=== PATIENT | male | born 1945 | race Caucasian/White ===

== ENCOUNTER 2019-07-30 14:56 | Emergency (ER) | payer MEDICARE, SELFPAY ==
[2019-07-30 15:14] VITALS: BP 154/72; PULSE 75; RESP 16; TEMP 36.6; O2SAT 97
--- NOTE | 2019-07-30 15:51 | DI.RAD_ITS ---
EXAM: XR SHOULDER RT COMPLETE 2+V INDICATION: fall, pain. COMPARISON: RIGHT SHOULDER COMPLETE from 12/17/2016 TECHNIQUE: 2D digital imaging was performed. FINDINGS: The patient has a right shoulder hemiarthroplasty. There is a comminuted mildly displaced and impacte d fracture involving the proximal metaphysis of the right humerus. No other fracture or dislocation is identified. The soft tissues are unremarkable. IMPRESSION: Proximal right humeral fracture as described above.
--- NOTE | 2019-07-30 16:00 | W.ED.GENAD ---
Discharge Plan Disposition Patient Disposition: HOME Discharge Details Chief Complaint: Orthopedic Clinical Impression: Closed fracture of proximal end of right humerus, Fall due to ice or snow Primary Care Provider: Felicita Delatorre ED Provider: Stewart Fermin Home Meds and New Rx's Prescriptions: New oxycodone 5 mg tablet 5 mg PO BID PRN (Reason: severe pain) Qty: 10 RF: 0 Continued aspirin [Aspir-81] 81 MG tablet,delayed release (DR/EC) 81 mg PO DAILY RF: 0 acetylcysteine 600 MG capsule 600 mg PO DAILY RF: 0 ibuprofen [Advil] 100 MG tablet,chewable 200 mg PO Q4H PRN RF: 0 multivitamin [Daily Value] 1 EACH tablet 1 ea PO DAILY RF: 0 meclizine 25 MG tablet,chewable 25 mg PO QID PRNQty: 30 RF: 3 atovaquone-proguanil [Malarone] 250-100 mg tablet See Rx Instructions PO .COMPLEX Qty: 28 RF: 0 Discharge Instructions Instructions: Oxycodone, Rapid Release (By mouth), Fall Prevention for Older Adults (ED), Proximal Humerus Fracture (ED) Additional Instructions: Please take acetaminophen (tylenol) - 650mg every 6 hours by mouth as needed for pain. Please take ibuprofen over the counter. Take 600mg by mouth every 6 hours as needed for pain. Please use sling. Follow-up with orthopedics. Call on Wednesday to schedule follow-up appointment. Return to the ER for any worsening or new concerning symptoms. Referrals: Steve Adame MD [ [facility] STAFF PHYSICIAN] - Felicita Delatorre NP [Primary Care Provider] - Discharge Data Discharge Date/Time-TO BE ENTERED AT DEPARTURE: 07/30/19 16:30 Medical Decision Making 74-year-old male here after slip and fall on ice with injury to his right shoulder. Patient is neurovascular intact distally. Right shoulder x-ray reviewed and interpreted by me: Comminuted fracture of the proximal humerus with questionable extension into humeral head. There is a humeral head In place. I called and spoke with Dr. Adame and discussed ED presentation and course, he reviewed x-rays, he recommends outpatient follow-up in clinic. HPI General Mode of arrival: ambulatory. Date/Time Provider Initiated Documentation: 07/30/19 15:16. Limitations to Documentation: no limitations. Information obtained by: patient. HPI Narrative: 74-year-old male with history of arthritis, prior humeral head replacement on the right for arthritis, here with chief complaint of right shoulder pain. Patient notes he slipped and fell on the ice landing on his right shoulder just prior to arrival. Pain is severe and worse with any movement of his shoulder. He sustained no other injury during the fall. No neck pain. No head injury. No headache. He has no hip pain. No associated numbness or tingling in his arm. Related Data Home Medications Medication Instructions Recorded Confirmed acetylcysteine 600 mg PO DAILY 10/28/12 08/08/19 aspirin [Aspir-81] 81 mg PO DAILY tab-cap 10/28/12 08/08/19 ibuprofen [Advil] 200 mg PO Q4H PRN tab 11/02/13 08/08/19 multivitamin [Daily Value] 1 ea PO DAILY 12/11/15 08/08/19 meclizine 25 mg PO QID PRN #30 tab-cap 03/30/17 08/08/19 atovaquone 250 mg-proguanil 100 mg See Rx Instructions PO .COMPLEX 07/08/18 08/08/19 tablet #28 tab oxycodone 5 mg PO BID PRN #10 tab 07/30/19 08/08/19 Previous Rx's Medication Instructions Recorded atovaquone 250 mg-proguanil 100 mg See Rx Instructions PO .COMPLEX 07/08/18 tablet #28 tab oxycodone 5 mg PO BID PRN #10 tab 07/30/19 Allergies Allergy/AdvReac Type Severity Reaction Status Date / Time Penicillins Allergy Intermediate rash Verified 08/08/19 10:52 vancomycin Allergy Unknown Rash Verified 08/08/19 10:52 General Stated Complaint: Orthopedic SYBIL: 4 Review of Systems Constitutional Constitutional: Denies headache(s) ENT Ears, Nose, Mouth, and Throat: Denies headache(s) Cardiovascular Cardiovascular: Denies dyspnea Respiratory Respiratory: Denies dyspnea Gastrointestinal Gastrointestinal: Denies abdominal pain Musculoskeletal Musculoskeletal: Reports as per HPI Neurologic Neurologic: Reports as per HPI and Denies headache(s) [facility] Surgical History CAP PROSTHESIS RIGHT SHOULDER DR. CARNEY Colectomy (~08/2011) [facility] [place] Colonoscopy - IV Sedation (09/14/14) Family History Mother , breast CA at age 40. Lung cancer Father No problems noted. Sister No problems noted. Sister No problems noted. Sister No problems noted. Social History Smoking/Tobacco Use Status: Never Alcohol Intake: never Drug use: Never Current gender identity: male Do you feel safe at home: Yes Do you feel safe in your relationship?: Yes Exam Const General: cooperative and no acute distress HENMT Head: normocephalic and atraumatic Neck Neck: trachea midline and supple Resp Auscultation: clear to auscultation bilaterally, no rales, no rhonchi and no wheezes Cardio Jugular venous pressure: no JVD Rate: regular rate and not tachycardic Rhythm: regular rhythm GI Palpation: soft, not firm, no guarding, no masses, not rigid and nontender Back/Spine/Pelvis Cervical Spine: cervical ROM normal, No cervical spinal tenderness and No step off deformity Thoracic/Lumbar Spine: No thoracic spinal tenderness and No lumbar spinal tenderness Pelvis: no pain with lateral compression Skin General skin exam: no rashes or lesions noted Neuro General: alert, awake, oriented x3 and tone normal Extrem General: no edema and other (Distal motor and sensation intact, 2+ radial pulse right) Right upper extremity: shoulder/upper arm Details: tenderness Location: of the proximal humerus, swelling Location: of the proximal humerus and abnormal ROM Details: held in an abnormal fashion Details: in ADduction and pain with passive ROM Details: with ABduction Course Vital Signs Vital signs: Vital Signs Temperature 36.6 C 07/30/19 15:14 Pulse 75 07/30/19 15:14 Respiratory Rate 16 07/30/19 15:14 Blood Pressure 154/72 H 07/30/19 15:14 Pulse Oximetry 97 07/30/19 15:14 Temperature 36.6 C 07/30/19 15:14 Temperature Source Temporal Artery Scan 07/30/19 15:14 Pulse 75 07/30/19 15:14 Respiratory Rate 16 07/30/19 15:14 Respiratory Effort Non-Labored 07/30/19 15:16 Blood Pressure 154/72 H 07/30/19 15:14 Blood Pressure Position Sitting 07/30/19 15:14 Pulse Oximetry 97 07/30/19 15:14 Oxygen Delivery Method Room Air 07/30/19 15:14 Oxygen Flow Rate 0 07/30/19 15:14 Pain Level 6 07/30/19 15:24
--- NOTE | 2019-07-30 16:17 | DI.VRAD_ITS ---
PROCEDURE INFORMATION: Exam: XR Right Shoulder Exam date and time: 07/30/2019 3:52 PM Age: 74 years old Clinical indication: Injury or trauma; Fall; Initial encounter; Blunt trauma (contusions or hematomas; Arm, upper; Right; Prior surgery TECHNIQUE: Imaging protocol: XR Right shoulder. Views: 2 or more views. COMPARISON: CR RIGHT SHOULDER COMPLETE 12/17/2016 11:15 AM FINDINGS: Bones/joints: Acute, minimally impacted and mildly displaced fracture of the right humerus proximal metaphysis. Right shoulder hemiarthroplasty, unchanged in position and alignment compared to the prior study. No dislocation. Degenerative changes within the acromioclavicular joint. Soft tissues: Normal. IMPRESSION: Acute fracture of the right proximal humerus. Dictated and Authenticated by: Nilson Meadows MD. Ordering:MONAE William MD
[2019-07-30] MEDS: Ibuprofen 600 MG TAB PO (16:18)
[2019-07-30] MEDS: Acetaminophen 325 MG TAB 650 MG PO (16:18)
[2019-07-30] MEDS: oxyCODONE 5 MG TAB 10 MG PO (16:26)
[2019-07-30 16:41] VITALS: BP 148/78; PULSE 70; RESP 18; O2SAT 97
== END 2019-07-30 16:30 | disposition home or self-care (01) ==
PROVIDERS: Emergency Provider Student in an Organized Health Care Education/Training Program; PCP Nurse Practitioner
DX: S42.201A Unspecified fracture of upper end of right humerus, initial encounter for closed fracture (principal); W00.0XXA Fall on same level due to ice and snow, initial encounter
CPT/HCPCS: 99284; 73030; 99283; L3650

== ENCOUNTER 2019-07-31 10:15 | Outpatient (CLI) | payer MEDICARE, SELFPAY ==
--- NOTE | 2019-07-31 13:40 | DI.CT_ITS ---
EXAM: CT UPPER EXTREMITY RT WO CLINICAL HISTORY: RIGHT PROXIMAL HUMERUS FRACTURE, S42.209A, PRESURGICAL PLANNING TECHNIQUE: NONCONTRAST COMPARISON: XR SHOULDER RT COMPLETE 2+V from 07/30/2019 FINDINGS: There is a comminuted fracture of the proximal metaphysis of the right humerus. Fracture extends pro ximally to involve a portion of the posterior greater tuberosity. Fracture is impacted. Medial disp lacement of the distal fracture component. The patient has a right shoulder hemiarthroplasty. The f racture does not appear to involve the orthopedic hardware. There are degenerative changes seen at t he acromioclavicular joint. There is artifact in the soft tissues due to the patient's orthopedic hardware. The soft tissues roma ear grossly unremarkable. IMPRESSION: Comminuted, impacted fracture involving the proximal metaphysis and the greater tuberosity of the rig ht humerus as described above.
== END 2019-07-31 10:35 ==
PROVIDERS: PCP Nurse Practitioner; Visit Provider Student in an Organized Health Care Education/Training Program
DX: S42.251A Displaced fracture of greater tuberosity of right humerus, initial encounter for closed fracture (principal); Z96.611 Presence of right artificial shoulder joint
CPT/HCPCS: 73200

== ENCOUNTER 2019-08-08 10:52 | Outpatient (CLI) | payer MEDICARE, SELFPAY ==
--- NOTE | 2019-08-08 11:43 | DI.RAD_ITS ---
EXAM: XR SCAPULA RT INDICATION: right humerus injury. COMPARISON: XR SHOULDER RT COMPLETE 2+V from 07/30/2019 TECHNIQUE: 2D digital imaging was performed. FINDINGS: There has been no change in the alignment of the proximal fracture given differences in projection. No new abnormalities are seen.
== END 2019-08-08 11:12 ==
PROVIDERS: PCP Nurse Practitioner; Referring Provider Nurse Practitioner; Visit Provider Student in an Organized Health Care Education/Training Program
DX: M97.31XA Periprosthetic fracture around internal prosthetic right shoulder joint, initial encounter (principal); W00.0XXA Fall on same level due to ice and snow, initial encounter
CPT/HCPCS: 99204; 99215; 73010

== ENCOUNTER 2019-08-29 13:37 | Outpatient (CLI) | payer MEDICARE, SELFPAY ==
--- NOTE | 2019-08-29 13:36 | DI.RAD_ITS ---
EXAM: XR SHOULDER RT COMPLETE 2+V INDICATION: F/U FRACTURE. COMPARISON: XR SHOULDER RT COMPLETE 2+V from 07/30/2019 XR SHOULDER RT COMPLETE 2+V from 07/30/2019 XR SCAPULA RT from 08/08/2019 TECHNIQUE: 2D digital imaging was performed. FINDINGS: A humeral prosthesis is again noted. There has been no change in the alignment of the comminuted fra cture of the proximal humerus. There is increased healing when compared with the previous exam.
== END 2019-08-29 13:57 ==
PROVIDERS: PCP Nurse Practitioner; Referring Provider Nurse Practitioner; Visit Provider Student in an Organized Health Care Education/Training Program
DX: M97.31XA Periprosthetic fracture around internal prosthetic right shoulder joint, initial encounter (principal); Z96.611 Presence of right artificial shoulder joint; W00.0XXA Fall on same level due to ice and snow, initial encounter
CPT/HCPCS: 99213; 73030

== ENCOUNTER 2019-09-26 11:08 | Outpatient (CLI) | payer MEDICARE, SELFPAY ==
--- NOTE | 2019-09-26 10:45 | DI.RAD_ITS ---
EXAM: XR SHOULDER RT COMPLETE 2+V CLINICAL HISTORY: Follow up TECHNIQUE: The exam was performed according to the usual protocol. COMPARISON: XR SHOULDER RT COMPLETE 2+V from 08/29/2019 FINDINGS: Two views were obtained and show previous described proximal humeral metaphyseal fracture with no shirley ss interval change in alignment in comparison with examination of August 29. Appears to be increased callus formation at the fracture site. Humeral head prosthesis remains well seated.
== END 2019-09-26 11:28 ==
PROVIDERS: PCP Nurse Practitioner; Referring Provider Nurse Practitioner; Visit Provider Student in an Organized Health Care Education/Training Program
DX: S42.251D Displaced fracture of greater tuberosity of right humerus, subsequent encounter for fracture with routine healing (principal); Z96.611 Presence of right artificial shoulder joint; M97.31XD Periprosthetic fracture around internal prosthetic right shoulder joint, subsequent encounter; X58.XXXD Exposure to other specified factors, subsequent encounter
CPT/HCPCS: 99214; 73030

== ENCOUNTER 2019-11-14 10:33 | Outpatient (CLI) | payer MEDICARE, SELFPAY ==
--- NOTE | 2019-11-14 10:12 | DI.RAD_ITS ---
EXAM: XR SHOULDER RT COMPLETE 2+V CLINICAL HISTORY: fracture. TECHNIQUE: 2D digital imaging was performed. COMPARISON: XR SHOULDER RT COMPLETE 2+V from 08/29/2019 XR SHOULDER RT COMPLETE 2+V from 09/26/2019 FINDINGS: BONES: There has been no change in alignment of the proximal right humeral fracture. There has been increased callus formation about the fracture compared to the prior examination. No new fracture is identified. No bony destructive lesion is seen. JOINTS: The right shoulder prosthesis is stable. SOFT TISSUE: Normal. IMPRESSION: Stable healing proximal right humeral fracture. DATA REPOSITORY: RADIATION DOSE DELIVERED:
== END 2019-11-14 10:53 ==
PROVIDERS: PCP Nurse Practitioner; Referring Provider Nurse Practitioner; Visit Provider Student in an Organized Health Care Education/Training Program
DX: S42.251D Displaced fracture of greater tuberosity of right humerus, subsequent encounter for fracture with routine healing (principal); Z96.611 Presence of right artificial shoulder joint; M97.31XD Periprosthetic fracture around internal prosthetic right shoulder joint, subsequent encounter; W00.0XXD Fall on same level due to ice and snow, subsequent encounter
CPT/HCPCS: 99213; 73030

== ENCOUNTER 2020-02-13 08:38 | Outpatient (CLI) | payer MEDICARE, SELFPAY ==
--- NOTE | 2020-02-13 08:15 | DI.RAD_ITS ---
EXAM: XR SHOULDER RT COMPLETE 2+V CLINICAL HISTORY: fu right shoulder fx TECHNIQUE: COMPARISON: CR XR SHOULDER RT COMPLETE 2+V from 11/14/2019 FINDINGS: Two views were obtained. Note is again made of humeral head prosthesis which appears well seated in the glenoid and the humerus. Previously noted proximal humeral fracture again seen which shows incre ased healing with no gross interval change in alignment comparison films of November 13. IMPRESSION:
== END 2020-02-13 08:58 ==
PROVIDERS: PCP Nurse Practitioner; Referring Provider Nurse Practitioner; Visit Provider Student in an Organized Health Care Education/Training Program
DX: S42.251D Displaced fracture of greater tuberosity of right humerus, subsequent encounter for fracture with routine healing (principal); M97.31XA Periprosthetic fracture around internal prosthetic right shoulder joint, initial encounter; Z96.611 Presence of right artificial shoulder joint
CPT/HCPCS: 99213; 73030

== ENCOUNTER → 2024-03-07 09:05 | Outpatient (CLI) | payer OTHER, SELFPAY ==
--- NOTE | 2024-03-07 09:00 | DI.RAD_ITS ---
Exam(s) XR CHEST 2V PA LATERAL EXAM: XR CHEST 2V PA LATERAL CLINICAL HISTORY: MEADE, Fatigue, Decreased exercise tolerance, SOB, R68.89, R53.83, R06.02,. TECHNIQUE: 2D digital imaging was performed. COMPARISON: No exams were available for comparison FINDINGS: 2 views: Heart size is normal. The mediastinum is not widened. Lungs are clear. No infiltrates nor pleural effusions. Right shoulder prosthesis noted. IMPRESSION: No acute pulmonary findings. DATA REPOSITORY: RADIATION DOSE DELIVERED:
== END ==
PROVIDERS: PCP Nurse Practitioner; Visit Provider Nurse Practitioner
DX: R68.89 Other general symptoms and signs (principal); R53.83 Other fatigue; R06.02 Shortness of breath; Z13.220 Encounter for screening for lipoid disorders
CPT/HCPCS: 71046

== ENCOUNTER 2024-03-14 01:47 | Outpatient (CLI) | payer OTHER, SELFPAY ==
--- NOTE | 2024-03-14 06:00 | ETT_ITS ---
APPROVED REPORT Exam: Exercise Treadmill Patient Location: Out-Patient Room/Bed: Stress Nurse: Naz Perez RN Ordering Provider:MILDRED COLES, Contact Number: [phone] BMI: 27.05 Baseline Rhythm: Sinus Rhythm Indications: SOB, decreased exercise tolerance, fatigue, dyspnea, Medical History Medical History: BPV, chronic shoulder pain Cardiac Medications: Acetylcysteine, aspirin Allergies: Pencillin, vancomycin Cardiac Risk Factors: None Previous Cardiac Procedures: None Pretest Chest Pain Characteristics: None Exercise History: Physically active Physical Disabilities: None Lung Sounds: Clear to auscultation Heart Sounds: Regular Stress Test Details Test: Exercise stress testing was performed using a Luís protocol. Rest Stress HR Resting HR Supine: 62 bpm Max Heart Rate (APMHR): 141 bpm Resting HR Standin bpm Target HR (85% APMHR): 120 bpm Max HR Achieved: 132 bpm % of APMHR: 94 Recovery HR: 62 bpm HR response to stress: Accelerated HR response to stress BP Resting BP Supine: 136/82 mmHg Resting BP Standin/78 mmHg Max BP: 172/76 mmHg Recovery BP: 116/76 mmHg BP response to stress: Normal blood pressure response to stress. ECG Resting ECG: Sinus Rhythm Ectopy: None Stress ECG: Sinus Tachycardia ST Change: No significant ST segment changes noted Arrhythmia: Frequent PVC's, couplets, bigeminy Recovery ECG: Sinus Rhythm Recovery ST Change: No significant ST segment changes noted Recovery Arrhythmia: Rare PVC Clinical Reason for Termination: Target HR Achieved, ectopy Stress Symptoms: None Exercise duration: 02 min18 sec Highest Stage Reached: Stage 1: 1.7 mph at 10% grade. Exercise capacity: 4.64 METs Angina Score: None Hernandez Treadmill Score: 1.6 Rate Pressure Product: [id number] Stress ECG Conclusion 1. Resting EKG showed first-degree AV block otherwise normal 2. Patient exercised on the Luís protocol and completed a workload of 4.64 METS 3. Rapid increase in heart rate with activity suggest deconditioning. The patient achieved 94% of pr edicted heart rate for age 4. There was no electrocardiographic findings of myocardial ischemia 5. Occasional PVCs were noted Hernandez Treadmill Score is 1.6 which is Moderate risk. Stress Test Summary STAGE Time (mins) Speed (mph) Grade (%) HR BP SpO2 SYMPTOMS METS Supine 62 136/82 97% Standing 70 132/78 1 3 1.7 10 130 4.5 1 min recovery 101 172/76 98% 3 min recovery 65 138/80 97% 6 min recovery 62 116/76 98%
== END 2024-03-14 02:07 ==
PROVIDERS: PCP Nurse Practitioner; Visit Provider Nurse Practitioner
DX: R06.02 Shortness of breath (principal); R06.09 Other forms of dyspnea
CPT/HCPCS: 93016; 93018; 93017

== ENCOUNTER 2024-03-17 01:48 | Outpatient (CLI) | payer OTHER, SELFPAY ==
[2024-03-17 07:55] LABS: Abs Immature Grans 0.03 10^3/uL (0.0-0.06); Absolute Basophil Count 0.07 10^3/uL (0.0-0.2); Absolute Eosinophil Count 0.17 10^3/uL (0.0-0.7); Absolute Lymphocyte Count 2.07 10^3/uL (1.2-3.4); Absolute Monocyte Count 0.82 10^3/uL (0.1-0.8); Absolute Neutrophil Count 6.14 10^3/uL (1.2-6.7); Basophils % 0.8 %; Eosinophils % 1.8 %; HCT 42.7 % (40.0-50.0); HGB 14.4 g/dL (13.5-17.5); Immature Grans % 0.3 %; Lymphocytes % 22.3 %; MCH 32.5 pg (27.0-33.0); MCHC 33.7 % (32.0-36.0); MCV 96 fL (80-95); Monocytes % 8.8 %; Platelet Count 274 10^3/uL (130-400); RBC 4.43 10^6/uL (4.36-5.78); RDW 12.6 % (11.8-14.1); RDW-SD 44.8 fL
[2024-03-17 08:03] LABS: Bilirubin Negative (Negative); Blood Negative (Negative); Clarity Clear (Clear); Glucose Negative (Negative); Ketones Trace mg/dL (Negative); Leukocyte Esterase Negative (Negative); Nitrite Negative (Negative); Specific Gravity >= 1.030 (1.005-1.025); Urobilinogen 0.2 mg/dL (Up to 0.2); pH 5.5 (5-8)
[2024-03-17 08:55] LABS: ALT 31 U/L (16-63); AST 19 U/L (15-37); Albumin 3.8 g/dL (3.4-5.0); Alkaline Phosphatase 84 U/L (46-116); Anion Gap 8.7 mmol/L (3-11); BUN 18 mg/dL (7-18); Bilirubin, Total 1.14 mg/dL (0.2-1.0); CO2 27.3 mmol/L (21.0-32.0); CREATININE 1.1 mg/dL (0.70-1.30); Calculated LDL 90 mg/dL (<100); Chloride 105 mmol/L (98-107); Cholesterol 162 mg/dL (<200); Estimated GFR 68.29 (mL/min/1.73m2); Glucose 91 mg/dL (74-106); HDL Cholesterol 64 mg/dL (40-60); Potassium 4.2 mmol/L (3.5-5.1); Sodium 141 mmol/L (136-145); TSH (W/Ref FT4) 1.12 uIU/mL (0.36-3.74); Triglyceride 43 mg/dL (<150)
[2024-03-20 09:12] LABS: Lyme Ab w Rflx to Lyme Confirm Negative (Negative)
[2024-03-21 00:56] LABS: Anaplasma phagocytophilum Negative (Negative); B. miyamotoi PCR Negative (Negative); Babesia divergens/MO-1 Negative (Negative); Babesia duncani Negative (Negative); Babesia microti Negative (Negative); Ehrlichia chaffeensis Negative (Negative); Ehrlichia ewingii/canis Negative (Negative); Ehrlichia muris eauclairensis Negative (Negative)
== END 2024-03-17 01:49 | disposition home or self-care (01) ==
LOC: LBO 01:48
PROVIDERS: PCP Nurse Practitioner; Referring Provider Nurse Practitioner; Visit Provider Nurse Practitioner
DX: J45.909 Unspecified asthma, uncomplicated (principal); R68.89 Other general symptoms and signs; R53.83 Other fatigue; R06.02 Shortness of breath; Z13.220 Encounter for screening for lipoid disorders; I10 Essential (primary) hypertension; E78.5 Hyperlipidemia, unspecified
CPT/HCPCS: 36415; 80053; 80061; 87798; 81003; 84443; 85025; 86618

== ENCOUNTER 2024-05-19 11:04 | Day surgery (SDC) | payer OTHER, SELFPAY ==
[2024-05-19 11:15] VITALS: BP 134/81; PULSE 63; RESP 18; TEMP 37; O2SAT 99
[2024-05-19] MEDS: Tropicam./Phenyleph. (1/2.5%) 5 ML BTL OS ×3 (11:22→11:35)
--- NOTE | 2024-05-19 11:29 | ANES.PREOP_ITS ---
General Info Date of Service Date Performed: 05/19/24 Height: 5 ft 11 in Weight: 88.6 kg Body Mass Index (BMI): 27.2 Surgical Procedure: Operation Date: 05/19/24 13:40 Proposed Procedure Side Surgeon p Cataract Extraction with IOL Implant Left Kwasi Elizabeth MD Meds Allergies and Home Medications Allergies Allergy/AdvReac Type Severity Reaction Status Date / Time Penicillins Allergy Intermediate rash Verified 05/19/24 11:22 vancomycin Allergy Unknown Rash Verified 05/19/24 11:22 Home Medication ?Medication ?Instructions ?Recorded acetylcysteine 600 mg capsule 600 mg PO DIRECTED 10/28/12 ibuprofen 100 mg chewable tablet 200 mg PO Q4H PRN 11/02/13 (Advil) multivitamin (Daily Value tablet) 1 ea PO DAILY 12/11/15 triamcinolone acetonide 0.1 % 1 applic topical BID PRN bilateral 09/20/23 topical cream outer ear dermatitis #30 grams aspirin 81 mg tablet,delayed 81 mg PO .3x/week 12/14/23 release (Aspir-) Current Visit Medications: Current Medications Generic Name Dose Route Start Last Admin Trade Name Freq PRN Reason Stop Dose Admin Acetaminophen 1,000 mg 05/19/24 06:40 Acetaminophen 500 Mg Tab PO 06/18/24 06:39 Q4H PRN PRN Balanced Salt Solution 500 ml 05/19/24 06:45 Balanced Salt Soln.-Plus 500 Ml Bag OP 06/18/24 06:44 DIRECTED LEN Miscellaneous Medication 0 ml 05/19/24 06:40 Prednisolone 1%, Moxifloxacin 0.5%, Bromfenac 0.09% 5.6ml Btl OS 06/18/24 06:39 DIRECTED LEN Miscellaneous Medication 0 ml 05/19/24 06:40 Tropicam./Phenyleph. (1/2.5%) 5 Ml Btl OS 06/18/24 06:39 DIRECTED LEN Tetracaine HCl 0 ml 05/19/24 06:40 Tetracaine 0.5% 4 Ml Btl OS 06/18/24 06:39 DIRECTED LEN PFSH Active Problems Active Problems: Problem Status Onset Code Cortical age-related cataract, left eye Acute H25.012 Nuclear age-related cataract, left eye Acute H25.12 Periprosthetic fracture around internal prosthetic shoulder joint Acute 07/30/19 M97.8XXA, Z96.619 Diverticulitis of intestine with abscess Acute K57.80 Medical History Medical History Chronic right shoulder pain (12/11/15) Vertigo Surgical History Surgical History Colonoscopy - IV Sedation (09/14/14) Colectomy (~08/2011) [facility] [place] PROSTHESIS RIGHT SHOULDER DR. CARNEY Tobacco Smoking/Tobacco Use Status: Never Alcohol Alcohol Intake: never Substance Use Substance use: Never Substance use type: does not use Vital Signs and Lab Results Vital Signs Most Recent Vital Signs in EMR: Most Recent Vital Signs Temp Pulse Resp BP Pulse Ox 37 C 63 18 134/81 99 05/19/24 11:15 05/19/24 11:15 05/19/24 11:15 05/19/24 11:15 05/19/24 11:15 Lab Results Blood Type / Crossmatch: No Data to Display Complete Blood Count: No Data to Display Complete Metabolic Panel: No Data to Display Liver Function Panel: No Data to Display Coagulation Panel: 2 No Data to Display Cardiac Panel: No Data to Display Arterial Blood Gas: No Data to Display Venous Blood Gas: No Data to Display Pancreas Panel: No Data to Display Thyroid Panel: No Data to Display Infectious Disease: No Data to Display Blood Cultures: No Data to Display Toxicology Panel: No Data to Display Imaging and Studies Imaging and Studies Study information below may be from another EMR and interpreted by another provider. Please see original notes in EMR for more complete details. Stress Test Summary: 03/14/24 Stress ECG Conclusion 1. Resting EKG showed first-degree AV block otherwise normal 2. Patient exercised on the Luís protocol and completed a workload of 4.64 METS 3. Rapid increase in heart rate with activity suggest deconditioning. The patient achieved 94% of predicted heart rate for age 4. There was no electrocardiographic findings of myocardial ischemia 5. Occasional PVCs were noted Hernandez Treadmill Score is 1.6 which is Moderate risk. Anesthesia Assessment and Plan Anesthesia History Personal History: No History of Anesthesia Complications Family History: No Family History of Anesthesia Complications Exercise Tolerance Exercise Tolerance: Metabolic Equivalents>4 Pertinent Negatives Pertinent Negatives: No Symptoms of GERD, No Major Cardiovascular Symptoms or Complaints, No Major Pulmonary Symptoms or Complaints and No History of CVA/TIA Cardiac & Pulmonary Exam Cardiac Exam: Normal S1/S2 Heart Sounds Pulmonary Exam: Clear Bilateral Breath Sounds Implantable Cardiac Device Does patient have a Pacemaker or an ICD?: No Airway Exam Known Difficult Airway: No Mallampati Class: 1 Mouth Opening: Normal (> 3cm) Thyromental Distance: Greater than 3 cm Neck Range of Motion: Full ROM Neck Circumference: Normal Teeth Condition: Normal Dentition ASA Classification ASA Score: ASA 2 Emergency Case?: No NPO Status NPO Status: NPO Clears >2 hours, Solids >8 hours Anesthesia Plan Resuscitation Status: Full Code Anesthesia Technique: MAC Anesthesia Airway Planned: Natural Airway Monitors Used: Standard Monitors
[2024-05-19 11:34] VITALS: BMI 27.2
[2024-05-19] MEDS: Povidone-Iodine Ophth 30 ML BTL (12:29)
[2024-05-19] MEDS: Tetracaine 0.5% 4 ML BTL OS (12:30)
[2024-05-19] MEDS: Balanced Salt Soln.-PLUS 500 ML BAG OP (12:36)
[2024-05-19] MEDS: Duovisc Viscoelastic System EACH 1 EACH (12:37)
[2024-05-19] MEDS: Lidocaine 1% Pres-Free 5 ML VIAL (12:37)
[2024-05-19] MEDS: Prednisolone 1%, Moxifloxacin 0.5%, Bromfenac 0.09% 5.6ML BTL OS (12:59)
--- NOTE | 2024-05-19 13:07 | W.PM.DSUDISC ---
Date of service: 05/19/24 Time of Service: 13:07 Discharge Plan Disposition Patient Disposition: Home Discharge Details Attending Provider: Kwasi Elizabeth Primary Care Provider: Felicita Delatorre Home Meds and New Rx's Prescriptions: No Action triamcinolone acetonide 0.1 % cream 1 applic topical BID PRN (Reason: bilateral outer ear dermatitis) Qty: 30 3RF acetylcysteine 600 MG capsule 600 mg PO DIRECTED ibuprofen [Advil] 100 MG tablet,chewable 200 mg PO Q4H PRN multivitamin [Daily Value] 1 EACH tablet 1 ea PO DAILY aspirin [Aspir-81] 81 mg tablet,delayed release (DR/EC) 81 mg PO .3x/week Discharge Instructions Stand Alone Forms: [facility] Post-Op Aparna Peterson ([facility]) Discharge Orders Discharge Orders: Discharge Order (Routine); Ordered 05/19/24 Ordered By: Kwasi Elizabeth DS: Diagnosis Discharge Diagnosis (1) Cortical age-related cataract, left eye: Status: Resolved (2) Nuclear age-related cataract, left eye: Status: Resolved
[2024-05-19 13:08] VITALS: BP 143/73; PULSE 66; RESP 18; TEMP 36.7; O2SAT 100
--- NOTE | 2024-05-19 13:08 | ROE_ITS ---
Date of service: 05/19/24 Time of Service: 13:08 Operative Note Operative Note DATE OF PROCEDURE: 05/19/24 PRE-OP DIAGNOSIS: Nuclear/cortical cataract, left POST-OP DIAGNOSIS: same PROCEDURE: Cataract extraction using phacoemulsification with intraocular lens implant, left eye SURGEON: Kwasi Elizabeth ANESTHESIA TYPE: Local By Surgeon and MAC Refer to Anesthesia Record PATHOLOGY: none sent COMPLICATIONS: None Patient was transported to: same day Patient's condition: stable Implants: Miki Clareon [id number] Indications: Progressive decreased vision due to cataract, left eye Procedure Description: CATARACT SURGERY OPERATIVE REPORT PREOPERATIVE DIAGNOSIS: Nuclear/cortical cataract, left eye POSTOPERATIVE DIAGNOSIS: Same OPERATION: Cataract extraction using phacoemulsification with posterior chamber intraocular lens implant, left eye. IOL: IOL Senior Marketing Data Analyst/Model: Miki Clareon [id number] IOL Power: + 19.5 diopters IOL Serial Number: [id number] Optic Diameter: 6.0mm Haptic/Overall Diameter: 13.0mm PHACO INFO: [email or web address] Vision System with OZil and Active Fluidics Cumulative Dispersed Energy (CDE): 4.89 seconds SURGEON: Kwasi Elizabeth MD, ASIYA ANESTHESIA: Monitored Anesthesia Care (MAC), with local sub-tenon's anesthetic infiltration COMPLICATIONS: None SPECIMENS: None INDICATIONS FOR PROCEDURE: The patient is a 79-year-old male with history of diminished visual acuity in his left eye secondary to the development of nuclear/cortical cataract. He is significantly symptomatic. He desires cataract surgery and attempt to improve and maximize his vision. The option of cataract surgery was offered to the pat ient and he wished to proceed. See office notes for detailed information. PROCEDURE: The correct surgical eye was identified and marked as the left eye and the pupil was dilated in the preoperative area using mydriatics and cycloplegics. The dilated pupil size was 5.0 mm. The patient elected to proceed without oral sedation. The patient was brought to the operating room where cardiopulmonary monitoring was instituted and surgical time-out was performed, confirming the correct operative eye and IOL power. Topical anesthesia was administered and ophthalmic povidone-iodine 5% was instilled into the conjunctival fornices. The ermias-ocular area was prepped with Betadine 10% solution and draped in the usual sterile fashion for intraocular surgery, including an aperture drape. A Tegaderm transparent film dressing was cut in half and used to cover the lashes and lid margins. Care was taken to sequester the lashes and lid margins under the Tegaderm dressing. A lid speculum was placed between the lids of the operative eye and the Miki LuxOR Revalia operating microscope was maneuvered into position. Ruddy scissors were then used to make a conjunctival buttonhole approximately 6mm posterior to the limbus in the inferonasal quadrant. Blunt dissection was carried out to expose bare sclera, and a blunt-tipped sub-tenon?s anesthesia cannula was introduced and passed posteriorly along the globe where non- preserved plain lidocaine was injected into posterior sub-Tenon?s space. A sideport knife was used to make a paracentesis port. Intraocular phenylephrine/lidocaine was injected into the anterior chamber. The anterior chamber was then filled with viscoelastic. A keratome knife was used construct a two-plane clear corneal tunnel extending 2.0mm into clear cornea. A flap was raised on the anterior capsule and capsulorhexis forceps were used to complete a continuous curvilinear capsulorhexis of 5.0 mm. Balanced salt solution was then used to perform cortical cleaving hydrodissection and nuclear hydrodelineation until the lens could be freely rotated within the capsular bag. The lens nucleus was then disassembled and removed within the capsular bag and iris plane using phacoemulsification. The anterior chamber was noted to be quite deep with loose zonules and a very thin capsule. Residual cortical material was removed using the irrigation/aspiration handpiece. The posterior capsule was carefully polished to remove as much residual lens epithelial cells as safely possible. The capsular bag was then inflated and the anterior chamber deepened with viscoelastic. The lens implant described above was inserted into the capsular bag using the Miki Autonome Injector. A Kuglen hook was used to dial the IOL into position. Residual viscoelastic was then removed first from posterior to the IOL, then from the anterior chamber using the I/A handpiece. The lens implant was noted to center nicely within the capsular bag. The incisions were stromally hydrated, and the anterior chamber was reformed using BSS. Then 0.5cc of moxifloxacin 1.0mg/ml were injected into the capsular bag and anterior chamber. The incisions were checked with a Weck spear and found to be secure. Several drops of ophthalmic povidone-iodine 5% were then applied to the eye followed by two drops of combination steroid/NSAID/antibiotic solution. The drapes were removed and a clear plastic protective eye shield was placed over the eye. The patient was then returned to Same Day Surgery in stable condition.
--- NOTE | 2024-05-19 13:18 | W.ANESPOSTOP ---
Postoperative Evaluation Date, Time and Location Date Performed: 05/19/24 Time Performed: 13:18 Patient Location: Day Surgery Unit Vital Signs Most Recent Imported Vital Signs: Most Recent Vital Signs Temp Pulse Resp BP Pulse Ox 36.7 C 66 18 143/73 H 100 05/19/24 13:08 05/19/24 13:08 05/19/24 13:08 05/19/24 13:08 05/19/24 13:08 Pain Score Most Recent Pain Score: Most Recent Pain Score Pain Level 0 05/19/24 13:08 Assessment Mental Status: Awake (Alert & Oriented to Patient Baseline) Airway and Respiratory Function: Patent airway with normal (patient baseline) respiratory exam Cardiovascular Function: Hemodynamically Stable Hydration Status: Adequately Hydrated Nausea & Vomiting: No Nausea or Vomiting Pain: Pt. Denies Any Pain Peripheral Nerve Block: Patient did not receive a nerve block
== END 2024-05-19 13:25 | disposition home or self-care (01) ==
LOC: SUR 11:05
PROVIDERS: PCP Nurse Practitioner; Visit Provider Ophthalmology
PROC: (CPT 66984; principal; 2024-05-19 13:30)
DX: H25.012 Cortical age-related cataract, left eye (principal); H25.12 Age-related nuclear cataract, left eye
CPT/HCPCS: 66984; 00123; V2632; J2003

== ENCOUNTER 2024-06-23 10:58 | Day surgery (SDC) | payer OTHER, SELFPAY ==
--- NOTE | 2024-06-23 06:57 | W.PREOPHP ---
Assessment and Plan Assessment and plan (1) Cortical age-related cataract, right eye: Status: Acute Assessment and plan: Assessment: Visually significant cataract of the right eye. Plan: Cataract extraction with lens implantation of the right eye. (2) Nuclear age-related cataract, right eye: Status: Acute Assessment and plan: Assessment: Visually significant cataract of the right eye. Plan: Cataract extraction with lens implantation of the right eye. History of Present Illness History of Present Illness Chief Complaint: Progressive decreased vision, right eye Narrative: The patient is a 79-year-old male with history of progressive decreased vision in both eyes secondary to the development of bilateral nuclear/cortical cataracts. He notes significant difficulty with glare and trouble reading. He needs more like to be able to see to read now. He has intermittent hazy vision in both eyes. He underwent cataract surgery in the left eye on 05/19/2024, and is doing well postoperatively. He now presents for cataract surgery in the right eye. Review of Systems All systems reviewed & are unremarkable except as noted in HPI and below PFSH All Active Problems Cortical age-related cataract, right eye (Acute) Nuclear age-related cataract, right eye (Acute) Periprosthetic fracture around internal prosthetic shoulder joint (Acute 07/30/19) Diverticulitis of intestine with abscess (Acute) Medical History Chronic right shoulder pain (12/11/15) Vertigo Surgical History Colonoscopy - IV Sedation (09/14/14) Colectomy (~08/2011) [facility] [place] [facility] [place] PROSTHESIS RIGHT SHOULDER DR. CARNEY Family History Mother , breast CA at age 40. Lung cancer Father No problems noted. Sister No problems noted. Sister No problems noted. Sister No problems noted. Social History Smoking/Tobacco Use Status: Never Smoking risk assessment performed?: Yes Alcohol Intake: never Drug use: Never Substance use type: does not use Adopted: No Caregiver/Support person: No Household members: spouse Housing: house Number of Children: 4 number of grandchildren: 15 Communication Needs: None current occupation: retired administration - fund raising, counselor Pets and animals: No Sexually active: No Do you think of yourself as: straight/heterosexual Current gender identity: male What is your relationship status?: How often do you talk on the phone with friends or family?: once per week How often do you get together with friends or relatives?: three or more times per week Panel score (0-1 are the most socially isolated patients): 2 What type of physical activity do you participate in: walking Duration: 15-30 minutes/day Frequency: 3-4 times per week Seatbelt use: always Drive intox or ride w/intox carry all driver: No Working smoke detector in home: Yes Fire extinguisher in home: Yes Carbon monox detector in home: Yes Do you feel safe at home: Yes Do you feel safe in your relationship?: Yes Meds Allergies and Home Medications Allergies Allergy/AdvReac Type Severity Reaction Status Date / Time Penicillins Allergy Intermediate rash Verified 06/23/24 11:19 vancomycin Allergy Unknown Rash Verified 06/23/24 11:19 Home Medications ?Medication ?Instructions ?Recorded ?Confirmed ?Type acetylcysteine 600 mg capsule 600 mg PO DIRECTED 10/28/12 06/23/24 History ibuprofen 100 mg chewable tablet 200 mg PO Q4H PRN 11/02/13 06/23/24 History (Advil) multivitamin (Daily Value tablet) 1 ea PO DAILY 12/11/15 06/23/24 History triamcinolone acetonide 0.1 % 1 applic topical BID PRN bilateral 09/20/23 06/23/24 Rx topical cream outer ear dermatitis #30 grams aspirin 81 mg tablet,delayed 81 mg PO .3x/week 12/14/23 06/23/24 History release (Aspir-) Exam Eyes Other: Most recent ocular examination is significant for uncorrected visual acuity of 20/40 in the right eye, 20/20 in the left eye. Extract motility is normal. Intraocular pressure is 14 OD, 13 OS. Slit-lamp examination is significant for 2+ nuclear with 1+ cortical cataract in the right eye. In the left eye there is a well-positioned PCIOL with clear posterior capsule. Funduscopic examination shows disc cupping of 0.4 OU with normal vessels, macula, peripheral retina and vitreous. Resp Auscultation: clear to auscultation bilaterally Cardio Rate: regular rate Rhythm: regular rhythm
[2024-06-23] MEDS: Tropicam./Phenyleph. (1/2.5%) 5 ML BTL OD ×3 (11:13→11:25)
[2024-06-23 11:14] VITALS: BP 152/84; PULSE 66; RESP 17; TEMP 36.3; O2SAT 99
[2024-06-23 12:17] VITALS: BMI 27.4
--- NOTE | 2024-06-23 12:17 | W.ANESPRE ---
General Info Date of Service Date Performed: 06/23/24 Height: 5 ft 11 in Weight: 89.3 kg Body Mass Index (BMI): 27.4 Surgical Procedure: Operation Date: 06/23/24 14:40 Proposed Procedure Side Surgeon p Cataract Extraction with IOL Implant Right Kwasi Elizabeth MD Meds Allergies and Home Medications Allergies Allergy/AdvReac Type Severity Reaction Status Date / Time Penicillins Allergy Intermediate rash Verified 06/23/24 11:19 vancomycin Allergy Unknown Rash Verified 06/23/24 11:19 Home Medication ?Medication ?Instructions ?Recorded acetylcysteine 600 mg capsule 600 mg PO DIRECTED 10/28/12 ibuprofen 100 mg chewable tablet 200 mg PO Q4H PRN 11/02/13 (Advil) multivitamin (Daily Value tablet) 1 ea PO DAILY 12/11/15 triamcinolone acetonide 0.1 % 1 applic topical BID PRN bilateral 09/20/23 topical cream outer ear dermatitis #30 grams aspirin 81 mg tablet,delayed 81 mg PO .3x/week 12/14/23 release (Aspir-) Current Visit Medications: Current Medications Generic Name Dose Route Start Last Admin Trade Name Freq PRN Reason Stop Dose Admin Acetaminophen 1,000 mg 06/23/24 10:00 Acetaminophen 500 Mg Tab PO 07/23/24 09:59 Q4H PRN PRN Balanced Salt Solution 500 ml 06/23/24 10:00 Balanced Salt Soln.-Plus 500 Ml Bag OP 07/23/24 09:59 DIRECTED [facility] Miscellaneous Medication 0 ml 06/23/24 10:00 Prednisolone 1%, Moxifloxacin 0.5%, Bromfenac 0.09% 5.6ml Btl OD 07/23/24 09:59 DIRECTED [facility] Miscellaneous Medication 0 ml 06/23/24 10:00 06/23/24 11:25 Tropicam./Phenyleph. (1/2.5%) 5 Ml Btl OD 07/23/24 09:59 1 drp DIRECTED LEN Administration Tetracaine HCl 0 ml 06/23/24 10:00 Tetracaine 0.5% 4 Ml Btl OD 07/23/24 09:59 DIRECTED LEN PFSH Active Problems Active Problems: Problem Status Onset Code Cortical age-related cataract, right eye Acute H25.011 Nuclear age-related cataract, right eye Acute H25.11 Cortical age-related cataract, left eye Resolved H25.012 Nuclear age-related cataract, left eye Resolved H25.12 Periprosthetic fracture around internal prosthetic shoulder joint Acute 07/30/19 M97.8XXA, Z96.619 Diverticulitis of intestine with abscess Acute K57.80 Medical History Medical History Chronic right shoulder pain (12/11/15) Vertigo Surgical History Surgical History Colonoscopy - IV Sedation (09/14/14) Colectomy (~08/2011) [facility] [place]OSTHESIS RIGHT SHOULDER DR. CARNEY Tobacco Smoking/Tobacco Use Status: Never Alcohol Alcohol Intake: never Substance Use Substance use: Never Substance use type: does not use Vital Signs and Lab Results Vital Signs Most Recent Vital Signs in EMR: Most Recent Vital Signs Temp Pulse Resp BP Pulse Ox 36.3 C L 66 17 152/84 H 99 06/23/24 11:14 06/23/24 11:14 06/23/24 11:14 06/23/24 11:14 06/23/24 11:14 Lab Results Blood Type / Crossmatch: No Data to Display Complete Blood Count: No Data to Display Complete Metabolic Panel: No Data to Display Liver Function Panel: No Data to Display Coagulation Panel: No Data to Display Cardiac Panel: No Data to Display Arterial Blood Gas: No Data to Display Venous Blood Gas: No Data to Display Pancreas Panel: No Data to Display Thyroid Panel: No Data to Display Infectious Disease: No Data to Display Blood Cultures: No Data to Display Toxicology Panel: No Data to Display Imaging and Studies Imaging and Studies Study information below may be from another EMR and interpreted by another provider. Please see original notes in EMR for more complete details. Stress Test Summary: 03/14/24 Stress ECG Conclusion 1. Resting EKG showed first-degree AV block otherwise normal 2. Patient exercised on the Luís protocol and completed a workload of 4.64 METS 3. Rapid increase in heart rate with activity suggest deconditioning. The patient achieved 94% of predicted heart rate for age 4. There was no electrocardiographic findings of myocardial ischemia 5. Occasional PVCs were noted Hernandez Treadmill Score is 1.6 which is Moderate risk. Anesthesia Assessment and Plan Anesthesia History Personal History: No History of Anesthesia Complications Family History: No Family History of Anesthesia Complications Exercise Tolerance Exercise Tolerance: Metabolic Equivalents>4 Pertinent Negatives Pertinent Negatives: No Symptoms of GERD, No Major Cardiovascular Symptoms or Complaints and No Major Pulmonary Symptoms or Complaints Cardiac & Pulmonary Exam Cardiac Exam: Normal S1/S2 Heart Sounds Pulmonary Exam: Clear Bilateral Breath Sounds Implantable Cardiac Device Does patient have a Pacemaker or an ICD?: No Airway Exam Known Difficult Airway: No Mallampati Class: 1 Mouth Opening: Normal (> 3cm) Thyromental Distance: Greater than 3 cm Neck Range of Motion: Full ROM Neck Circumference: Normal Teeth Condition: Normal Dentition ASA Classification ASA Score: ASA 2 Emergency Case?: No NPO Status NPO Status: NPO Clears >2 hours, Solids >8 hours Anesthesia Plan Resuscitation Status: Full Code Anesthesia Technique: MAC Anesthesia Airway Planned: Natural Airway Monitors Used: Standard Monitors
[2024-06-23] MEDS: Duovisc Viscoelastic System EACH 1 EACH (12:33)
[2024-06-23] MEDS: Povidone-Iodine Ophth 30 ML BTL (12:33)
[2024-06-23] MEDS: Trypan Blue 0.06% 0.5 ML SYR (12:34)
[2024-06-23] MEDS: Lidocaine 1% Pres-Free 5 ML VIAL (12:35)
[2024-06-23] MEDS: Balanced Salt Soln.-PLUS 500 ML BAG OP (12:35)
[2024-06-23] MEDS: Prednisolone 1%, Moxifloxacin 0.5%, Bromfenac 0.09% 5.6ML BTL OD (12:36)
[2024-06-23] MEDS: Tetracaine 0.5% 4 ML BTL OD (12:37)
[2024-06-23 12:50] VITALS: BP 150/90; PULSE 67; RESP 16; TEMP 36.3; O2SAT 99
--- NOTE | 2024-06-23 12:52 | W.PM.DSUDISC ---
Date of service: 06/23/24 Discharge Plan Disposition Patient Disposition: Home Discharge Details Attending Provider: Kwasi Elizabeth Primary Care Provider: Felicita Delatorre Home Meds and New Rx's Prescriptions: No Action triamcinolone acetonide 0.1 % cream 1 applic topical BID PRN (Reason: bilateral outer ear dermatitis) Qty: 30 3RF acetylcysteine 600 MG capsule 600 mg PO DIRECTED ibuprofen [Advil] 100 MG tablet,chewable 200 mg PO Q4H PRN multivitamin [Daily Value] 1 EACH tablet 1 ea PO DAILY aspirin [Aspir-81] 81 mg tablet,delayed release (DR/EC) 81 mg PO .3x/week Discharge Instructions Stand Alone Forms: [facility] Post-Op CataractAparna (DSU) Discharge Orders Discharge Orders: Discharge Order (Routine); Ordered 06/23/24 Ordered By: Kwasi Elizabeth DS: Diagnosis Discharge Diagnosis (1) Cortical age-related cataract, right eye: Status: Resolved (2) Nuclear age-related cataract, right eye: Status: Resolved
--- NOTE | 2024-06-23 12:53 | W.PM.OP ---
Operative Note Operative Note PRE-OP DIAGNOSIS: Nuclear/cortical cataract, right eye POST-OP DIAGNOSIS: same PROCEDURE: Cataract extraction using phacoemulsification with intraocular lens implant, right eye SURGEON: Kwasi Elizabeth ANESTHESIA TYPE: Local By Surgeon and MAC Refer to Anesthesia Record ESTIMATED BLOOD LOSS: 0 PATHOLOGY: none sent COMPLICATIONS: None Patient was transported to: same day Patient's condition: stable Implants: Miki Clareon [id number] Indications: Progressive decreased vision due to cataract, right eye Procedure Description: CATARACT SURGERY OPERATIVE REPORT PREOPERATIVE DIAGNOSIS: Nuclear/cortical cataract, right eye POSTOPERATIVE DIAGNOSIS: Same OPERATION: Cataract extraction using phacoemulsification with posterior chamber intraocular lens implant, right eye. IOL: IOL Upper Trimmer/Model: Miki Clareon [id number] IOL Power: + 19.5 diopters IOL Serial Number: [id number] Optic Diameter: 6.0mm Haptic/Overall Diameter: 13.0mm PHACO INFO: Miki Centurion Vision System with OZil and Active Fluidics Cumulative Dispersed Energy (CDE): 7.10 seconds SURGEON: Kwasi Elizabeth MD, ASIYA ANESTHESIA: Monitored Anesthesia Care (MAC), with local sub-tenon's anesthetic infiltration COMPLICATIONS: None SPECIMENS: None INDICATIONS FOR PROCEDURE: The patient is a 79-year-old male with history of diminished visual acuity in both eyes secondary to the development of bilateral nuclear/cortical cataract. He has already undergone undergone cataract surgery in the left eye and is doing well postoperatively. He now presents for cataract surgery in the right eye. See office notes for detailed information. PROCEDURE: The correct surgical eye was identified and marked as the right eye and the pupil was dilated in the preoperative area using mydriatics and cycloplegics. The dilated pupil size was 5.5 mm. The patient elected to proceed without oral sedation. The patient was brought to the operating room where cardiopulmonary monitoring was instituted and surgical time-out was performed, confirming the correct operative eye and IOL power. Topical anesthesia was administered and ophthalmic povidone-iodine 5% was instilled into the conjunctival fornices. The ermias-ocular area was prepped with Betadine 10% solution and draped in the usual sterile fashion for intraocular surgery, including an aperture drape. A Tegaderm transparent film dressing was cut in half and used to cover the lashes and lid margins. Care was taken to sequester the lashes and lid margins under the Tegaderm dressing. A lid speculum was placed between the lids of the operative eye and the Miki LuxOR Revalia operating microscope was maneuvered into position. Ruddy scissors were then used to make a conjunctival buttonhole approximately 6mm posterior to the limbus in the inferonasal quadrant. Blunt dissection was carried out to expose bare sclera, and a blunt-tipped sub-tenon?s anesthesia cannula was introduced and passed posteriorly along the globe where non-preserved plain lidocaine was injected into posterior sub-Tenon?s space. A sideport knife was used to make a paracentesis port. VisionBlue was injected into the anterior chamber and allowed to sit for 30 seconds. Intraocular phenylephrine/lidocaine was injected into the anterior chamber. The anterior chamber was then filled with viscoelastic. A keratome knife was used to construct a two--plane clear corneal tunnel extending 2.0mm into clear cornea. A flap was raised on the anterior capsule and capsulorhexis forceps were used to complete a continuous curvilinear capsulorhexis of 5.0 mm. Balanced salt solution was then used to perform cortical cleaving hydrodissection and nuclear hydrodelineation until the lens could be freely rotated within the capsular bag. The lens nucleus was then disassembled and removed within the capsular bag and iris plane using phacoemulsification. Residual cortical material was removed using the I/A handpiece. The posterior capsule was carefully polished to remove as much residual lens epithelial cells as safely possible. The capsular bag was then inflated and the anterior chamber deepened with cohesive viscoelastic. The lens implant described above was inserted into the capsular bag using the Miki Autonome Injector. A Kuglen hook was used to dial the IOL into position. Residual viscoelastic was then removed first from posterior to the IOL, then from the anterior chamber using the I/A handpiece. The lens implant was noted to center nicely within the capsular bag. The incisions were stromally hydrated, and the anterior chamber was reformed using BSS. Then 0.5cc of moxifloxacin 1.0mg/ml were injected into the capsular bag and anterior chamber. The incisions were checked with a Weck spear and found to be secure. Several drops of ophthalmic povidone-iodine 5% were then applied to the eye followed by two drops of combination steroid/NSAID/antibiotic solution. The drapes were removed and a clear plastic protective eye shield was placed over the eye. The patient was then returned to Same Day Surgery in stable condition. Date of Procedure: 06/23/24
--- NOTE | 2024-06-23 13:20 | W.ANESPOSTOP ---
Postoperative Evaluation Date, Time and Location Date Performed: 06/23/24 Time Performed: 12:52 Patient Location: Day Surgery Unit Vital Signs Most Recent Imported Vital Signs: Most Recent Vital Signs Temp Pulse Resp BP Pulse Ox 36.3 C L 67 16 150/90 H 99 06/23/24 12:50 06/23/24 12:50 06/23/24 12:50 06/23/24 12:50 06/23/24 12:50 Pain Score Most Recent Pain Score: Most Recent Pain Score Pain Level 0 06/23/24 12:50 Assessment Mental Status: Awake (Alert & Oriented to Patient Baseline) Airway and Respiratory Function: Patent airway with normal (patient baseline) respiratory exam Cardiovascular Function: Hemodynamically Stable Hydration Status: Adequately Hydrated Nausea & Vomiting: No Nausea or Vomiting Pain: Pt. Denies Any Pain Peripheral Nerve Block: Patient did not receive a nerve block
== END 2024-06-23 13:10 | disposition home or self-care (01) ==
LOC: SUR 10:58
PROVIDERS: PCP Nurse Practitioner; Visit Provider Ophthalmology
PROC: (CPT 66984; principal; 2024-06-23 14:30)
DX: H25.011 Cortical age-related cataract, right eye (principal); H25.11 Age-related nuclear cataract, right eye; Z98.42 Cataract extraction status, left eye
CPT/HCPCS: 66984; 00123; V2632; J2003

== ENCOUNTER 2025-01-03 02:38 | Outpatient (CLI) | payer MEDICARE, SELFPAY ==
[2025-01-03 09:14] LABS: Abs Immature Grans 0.02 10^3/uL (0.0-0.06); Absolute Basophil Count 0.08 10^3/uL (0.0-0.2); Absolute Eosinophil Count 0.17 10^3/uL (0.0-0.7); Absolute Monocyte Count 0.71 10^3/uL (0.1-0.8); Absolute Neutrophil Count 5.68 10^3/uL (1.2-6.7); Basophils % 0.9 %; HCT 43.2 % (40.0-50.0); HGB 14.5 g/dL (13.5-17.5); Immature Grans % 0.2 %; Lymphocytes % 23.1 %; MCH 32.1 pg (27.0-33.0); MCHC 33.6 % (32.0-36.0); MCV 96 fL (80-95); MPV 9.1 fL (8.0-11.0); Monocytes % 8.2 %; Neutrophils % 65.6 %; Platelet Count 283 10^3/uL (130-400); RBC 4.52 10^6/uL (4.36-5.78); RDW 12.8 % (11.8-14.1); WBC 8.66 10^3/uL (4.4-10.8)
[2025-01-03 09:19] LABS: Bilirubin Negative (Negative); Blood Negative (Negative); Clarity Clear (Clear); Glucose Negative (Negative); Ketones Negative (Negative); Leukocyte Esterase Negative (Negative); Nitrite Negative (Negative); Urobilinogen 0.2 mg/dL (Up to 0.2)
[2025-01-03 09:54] LABS: Anion Gap 5.3 mmol/L (3-11); BUN 15 mg/dL (7-18); CO2 29.7 mmol/L (21.0-32.0); CREATININE 1.2 mg/dL (0.70-1.30); Calculated LDL 79 mg/dL (<100); Chloride 103 mmol/L (98-107); Cholesterol 151 mg/dL (<200); Estimated GFR 61.52 (mL/min/1.73m2); Glucose 74 mg/dL (74-106); HDL Cholesterol 60 mg/dL (>or=40); Potassium 4.4 mmol/L (3.5-5.1); Sodium 138 mmol/L (136-145); TSH 1.18 uIU/mL (0.36-3.74); Triglyceride 60 mg/dL (<150)
[2025-01-03 09:55] LABS: Hemoglobin A1C 5.6 % (<5.7)
[2025-01-03 18:17] LABS: PSA, Screening 0.8 ng/mL (<=6.5)
== END 2025-01-03 02:39 | disposition home or self-care (01) ==
PROVIDERS: PCP Nurse Practitioner; Visit Provider Family Medicine
DX: S60.861A Insect bite (nonvenomous) of right wrist, initial encounter (principal); W57.XXXA Bitten or stung by nonvenomous insect and other nonvenomous arthropods, initial encounter; Z13.9 Encounter for screening, unspecified; R30.0 Dysuria; Z87.898 Personal history of other specified conditions; D64.9 Anemia, unspecified
CPT/HCPCS: 36415; 80048; 80061; 84153; 81003; 83036; 84443; 85025